=== PATIENT | male | born 1945 | race Caucasian/White ===

== ENCOUNTER 2016-02-11 10:12 | Outpatient (RCR) | payer MEDICARE ==
[2016-02-10 13:55] VITALS: BP 118/59
[~2016-02-11 10:12] MED LIST: ACETAMINOPHEN-H1 TA2 PO; AMARYL PO; CALCIUM1 CAP PO; CELEBREX 200MG200 MG PO; CYCLOBENZAPRINE10 M1 PO; FLOMAX 0.40.4 MG/CAP PO; JANUVIA100 MG PO; LASIX40 M1 PO; LOPRESSOR 550 MG/TAB PO; MAG-SO480 MG PO; MULTI VITAMINS1 TAB PO; PERCOCET 325 MG1 TA2 PO; PRAVASTATIN SOD10 MG PO; ZESTRIL40 M1 PO
== END 2016-05-11 | disposition home or self-care (01) ==
LOC: PT
DX: R53.1 Weakness (principal)

== ENCOUNTER 2016-08-25 13:57 | Emergency (ER) | payer MEDICARE ==
[~2016-08-25] VITALS: Ht 172.7 cm; Wt 105.7 kg
[2016-08-25] MEDS ORDERED: ASPIR LOW81 MG PO (14:43)
[2016-08-25] MEDS ORDERED: CYCLOBENZAPRINE10 M1 PO (14:53)
[2016-08-25] MEDS ORDERED: CITRACAL + D E1 EACH PO (14:53)
[2016-08-25] MEDS ORDERED: SLOW-MAG 106 MG1 ECT PO (14:55)
[2016-08-25] MEDS ORDERED: DOCUSATE SODIUM1 TA3 PO (14:56)
[2016-08-25] MEDS ORDERED: TRIDERM0.1% TP (14:58)
[2016-08-25 16:34] VITALS: BP 127/50
== END 2016-08-25 16:34 | disposition other institution (70) ==
LOC: ED 13:57
DX: N39.0 Urinary tract infection, site not specified (principal); B96.20 Unspecified Escherichia coli [E. coli] as the cause of diseases classified elsewhere
CPT/HCPCS: J2405; J7030

== ENCOUNTER 2016-08-25 16:23 | Inpatient (IN) | payer MEDICARE ==
[~2016-08-25] VITALS: Ht 172.7 cm; Wt 109.8 kg
[~2016-08-25 16:23] MED LIST changes: +ASPIR LOW81 MG PO; +CITRACAL + D E1 EACH PO; +DOCUSATE SODIUM1 TA3 PO; +SLOW-MAG 106 MG1 ECT PO; +TRIDERM0.1% TP
--- NOTE | 2016-08-25 16:51 | NUR ---
TRANSPORT PATIENT TO ROOM 208 VIA W/C. REMAINS PRESENT. THEY ARE AGREEABLE TO PLAN OF CARE. IV SITE INTACT TO LT FOREARM WITH NS INFUSING. PATIENT IS WEAK. REPORTS THAT HE NORMALLY HAS DIFFICULTY MOVING AROUND. HE DOES REQUIRE SOME ASSISTANCE RISING TO A SITTING POSITION ON THE BED. DURING TRANSFERS HE DOES HOLD ON TO NEARBY OBJECTS TO STEADY HIMSELF.
[2016-08-25 17:12] VITALS: BP 127/50
--- NOTE | 2016-08-25 17:56 | NUR ---
PATIENT SWEATING. POOL OF SWEAT ON PILLOW. SWEATPANTS REMOVED AND THEY ARE MOIST. ORAL TEMP 101.4. PATIENT POSITIONED FOR COMFORT. DENIES OTHER NEEDS AT THIS TIME.
[2016-08-25 18:41] VITALS: BP 131/44
--- NOTE | 2016-08-25 18:51 | NUR ---
REPORT PROVIDED TO AIRAM ALBERTO.
--- NOTE | 2016-08-25 18:55 | NUR ---
REPORT RECEIVED FROM JANIS Davenport RN.
[2016-08-25 22:53] VITALS: BP 108/61
--- NOTE | 2016-08-25 23:00 | NUR ---
Pt awake and a/o x 3. RECORDER HELPER SEISMOGRAPH reported pt requested warm blanket. Oral temp 98.7. Pt given warm blanket.
[2016-08-26] VITALS (7 sets, daily range): BP systolic 88–137; BP diastolic 34–75
--- NOTE | 2016-08-26 00:05 | NUR ---
Q hourly checks done, bed alarm on. Pt resting in bed on stomach. Respirations even. Pt snoring on and off. IV infusing at 125mls/hour.
--- NOTE | 2016-08-26 01:57 | NUR ---
At 0138 Pt's IV pump alarming. New bag of Noraml Saline hung. Continues to infuse at 125mls/hour. IV site, patent, no redness, no swelling and none tender to touch. Pt used urinal, voided 225mls of alison color urine. C/o of headache. Requested regular soda pop.
--- NOTE | 2016-08-26 01:59 | NUR ---
Oral temp 100.9. Pt given tylenol 1000mg PO. Given regular park cola with ice. Pt denied nausea.
--- NOTE | 2016-08-26 02:44 | NUR ---
Pt awake and a/o x 3. Repositioning self. Pt stated headache was gone. Pt Blankets off pt. Stated "I'm hot." "I can't decide if I'm hot or cold."
--- NOTE | 2016-08-26 06:13 | NUR ---
PATIENT CONTINUES TO REST QUIETLY IN BED. PATIENT DOES NOT APPEAR TO BE IN ANY OBVIOUS DISTRESS AT THIS TIME. PATIENT CHANGES HIS POSITION IN BED INDEPENDENTLY THROUGHOUT THE NIGHT. HOB ELEVATED TO A 75 DEGREE ANGLE, PER PATIENT REQUEST. BED RAILS UP X2. IV NS CONTINUES TO INFUSE AT 125 ML/HR. IV SITE LOOKS NORMAL. CALL LIGHT WITHIN REACH. BED ALARM ARMED AT ALL TIMES. PATIENT'S TEMPERATURE CONTINUES TO BE CLOSELY MONITORED. HOURLY ROUNDING CONTINUES.
--- NOTE | 2016-08-26 06:53 | NUR ---
REPORT GIVEN TO RALPH Bautista RN.
--- NOTE | 2016-08-26 11:00 | NUR ---
Pt vomits small amount of yellow clear emesis. Denies any pain. Just feels chilled.
--- NOTE | 2016-08-26 12:30 | NUR ---
Pt resting back in bed. Drank small amount of juice and broth. Sweating and hot. Fan provided. Pt resting with call light in reach
--- NOTE | 2016-08-26 18:10 | NUR ---
Edilberto Blank updated with pt condition, continued fevers and SPO2. Pt denies any SOB or any pain.
--- NOTE | 2016-08-26 20:30 | NUR ---
patient sitting up in chair upon nurses entering, just finished eating half a sandwich, half a bowl of soup and half a pudding, tolerated well, denies any nausea or upset stomach, "feel pretty good right now" patient able to stand up and pivot into the bed at this time with standby assist, tolerated well, SCD's applied, tucked in, bed alarm activated, finger stick blood sugar 235 at this time, will recheck in about an hour as he just finished eating, resting quietly, denies any needs/complaints at this time
--- NOTE | 2016-08-26 23:30 | NUR ---
2320 CODING DIRECTOR reported pt awake sitting up along side of bed. A/o x 3. C/o's of nausea and oral temp of 101.3. 2325 Pt given zofran 4mg SIVP. Given warm blanket. Pt c/o's of feeling cold and is shaking. Accu-chek done, blood sugar 123. 2330 Pt stated nausea was better. Given tylenol 1000mg PO. Pt swallowed without difficulty.
[2016-08-27 03:01] VITALS: BP 94/58
[2016-08-27 06:21] VITALS: BP 103/51
--- NOTE | 2016-08-27 09:38 | NUR ---
HOLDING MORNING MEDICATIONS AT THIS TIME DUE TO PENDING CT SCAN, PT HAS DRANK THE APPROPRIATE AGENT AND IS WAITING FOR SCAN AT THIS TIME
--- NOTE | 2016-08-27 09:57 | NUR ---
PT FOUND SITTING IN CHAIR THIS MORNING. PT REPORTED THAT HE WAS NAUSEATED LAST NIGHT, BUT NOT AT THIS TIME. PT REPORTED THAT HE HAD NO COMPLAINTS AND FELT LIKE HE WAS READY FOR DISCHARGE. REPORTING RN, KANA REPORTED FEVER AT 0030, LAST NIGHT. PT IS A-FEBRIL AT THIS TIME. PT DENIED PAIN. MEDICATIONS WERE HELD UNTIL AFTER MORNING CT, DUE TO POSSIBILITY OF NAUSEA. PT BREAKFAST HELD UNTIL AFTER CT. PT DENIED ANY COMPLAINTS.
--- NOTE | 2016-08-27 10:16 | NUR ---
pt returns from CT at this time, requesting to wait a few minutes for his breakfast and pills, he states he still is trying to recover from that "bitter" drink he had to get down prior to the scan, will give AM meds as soon as pt is ready and feeling better
[2016-08-27 10:27] VITALS: BP 155/82
--- NOTE | 2016-08-27 12:24 | NUR ---
PATIENT SITTING IN CHAIR EATING LUNCH. HE REPORTS IT IS SETTLING WELL. VISITOR PRESENT IN ROOM.
--- NOTE | 2016-08-27 14:18 | NUR ---
Pt anticipates discharge to home either on this date or tomorrow, he states he do not expect he will have any need of HH services upon discharge. Currently provider is awaiting CT results prior to making decision.
[2016-08-27 15:44] VITALS: BP 188/90
--- NOTE | 2016-08-27 15:49 | NUR ---
Pt with chilling, bouts of nausea, mildly elevated temperature. Reported to Syeda Clark PA-C. Syeda requested that I contact the patients spouse and give her an update of the events and that he would not be discharged today. Called Elaine and updated her. She voiced her understanding and stated she would be up later to visit.
--- NOTE | 2016-08-27 16:32 | NUR ---
Pt found wandering down the mota without assistance. When patient was asked where he was going, he asked if the dogs were here. Spouse had told Syeda Clark PA-C that they were raising a litter of puppies at home. Walked pt back to his room and settled him in bed and activated his bed alarm. Noted pt was tachypneic. O2 sats checked and resulted 91% on room air. Applied 2L O2 for comfort. HR noted to be tachycardic at 105. REMY Duenas reported findings to Syeda Clark PA-C.
[2016-08-27 18:39] VITALS: BP 136/66
--- NOTE | 2016-08-27 20:19 | NUR ---
PT A/OX2, UP TO BATHROOM, HAS HAD 2 EPISODES OF DIARRHEA, HAS NO C/O PAIN OR DISCOMFORT, EATING BANNANA AT THIS TIME
--- NOTE | 2016-08-27 22:39 | NUR ---
IV infiltrated while NS running. IV D/C'd. Cath intact. New INT #20 started in RFA x1 attempt. Tolerated well. Fluids resumed at this time.
[2016-08-27 22:55] VITALS: BP 132/76
[2016-08-28 02:51] VITALS: BP 137/78
[2016-08-28 06:18] VITALS: BP 159/80
--- NOTE | 2016-08-28 08:07 | NUR ---
Pt sitting up in recliner. Reports that he "have not slept since I've been here." Fluids infusing per order. Pt states that he is feeling better. Afebrile x 24 hours. Continues to have loose stools. Explain that this is most likely r/t abx infusion.
[2016-08-28 10:39] VITALS: BP 148/78
[2016-08-28 15:22] VITALS: BP 155/80
[2016-08-28 17:49] VITALS: BP 164/82
[2016-08-28] MEDS ORDERED: CEPHALEXIN500 M1 PO (18:21)
--- NOTE | 2016-08-28 18:57 | NUR ---
Pt reports that he is feeling better than upon admit. Informed him that he does have a low grade temp at this time, pt wants to wait to get home to take tylenol. Is given pt own clothing and dresses self. INT to RFA removed complete/intact. Pt instructed to start PO Abx tomorrow and resume regular home meds as prescribed. Pt reports that his will be here to pick him up.
--- NOTE | 2016-08-28 19:27 | NUR ---
Pt ambulates from facility for d/c at this time.
== END 2016-08-28 19:27 | disposition home or self-care (01) | DRG 690 ==
LOC: MED/SURG 16:23
PROVIDERS: ADMIT Physician Assistant
DX: N39.0 Urinary tract infection, site not specified (principal); E87.70 Fluid overload, unspecified; E11.9 Type 2 diabetes mellitus without complications; I10 Essential (primary) hypertension; Z96.653 Presence of artificial knee joint, bilateral; Z87.891 Personal history of nicotine dependence
CPT/HCPCS: J0696; J1650; J1815; J1885; J1940; J1956; J2405; J7030; Q9967

== ENCOUNTER → 2018-08-07 | Outpatient (CLI) | payer MEDICARE ==
[~2018-08-07] MED LIST changes: +CEPHALEXIN500 M1 PO
== END ==
LOC: VAS 16:33 → RAD 16:45
DX: R01.1 Cardiac murmur, unspecified (principal)

== ENCOUNTER 2018-10-19 11:04 | Emergency (ER) | payer MEDICARE ==
[~2018-10-19] VITALS: Wt 105.4 kg
[2018-10-19] MEDS ORDERED: PRAVASTATIN SOD40 MG PO (11:27)
[2018-10-19] MEDS ORDERED: VICTOZA 3-0.6 MG/0.1 SQ (11:27)
[2018-10-19] MEDS ORDERED: CELECOXIB200 M1 PO (11:28)
[2018-10-19] MEDS ORDERED: LOPRESSOR 225 MG/TAB PO (11:28)
[2018-10-19] MEDS ORDERED: PRAVACHOL 40MG40 MG PO (11:28)
[2018-10-19 11:35] LABS: EOS # 0.2 (0.04-0.40); EOS % 3.2 % (0.0-4.0); HEMOGLOBIN 12.9 g/dL (13.5-18.0); LYMPH# 1.5 (1.50-4.00); MEAN CELL VOLUME 85 fl (78-100); MEAN CORPUSCULAR HEMOGLOBIN 28 pg (27-31); MEAN CORPUSCULAR HGB CONC 33 g/dL (33-37); MEAN PLATELET VOLUME 11.2 fl (7.4-10.4); MONO # 0.5 (0.20-0.80); NEU # 5.2 (1.40-6.50); PLATELET COUNT 166 K/mm3 (130-400); RED BLOOD COUNT 4.61 M/mm3 (4.20-5.60); RED CELL DISTRIBUTION WIDTH 13.4 % (11.5-14.5); WHITE BLOOD COUNT 7.5 K/mm3 (4.8-10.8)
[2018-10-19 11:42] LABS: ALBUMIN 3.8 g/dL (3.4-4.8)
[2018-10-19 11:43] LABS: POTASSIUM 4.2 mmol/L (3.5-5.1)
[2018-10-19 11:44] LABS: CALCIUM 9.1 mg/dL (8.3-10.5)
[2018-10-19 11:47] LABS: TOTAL BILIRUBIN 0.5 mg/dL (0.2-1.2)
[2018-10-19 12:00] LABS: PROTHROMBIN TIME 9.9 SECONDS (9.0-12.0)
[2018-10-19 12:24] LABS: D-DIMER 2.46 mg/L FEU (0.15-0.50)
[2018-10-19 16:28] VITALS: BP 117/71
== END 2018-10-19 16:18 | disposition short-term general hospital (02) ==
LOC: ED 11:04
PROVIDERS: Nurse Practitioner Primary Care
DX: I20.9 Angina pectoris, unspecified (principal); E11.9 Type 2 diabetes mellitus without complications; I10 Essential (primary) hypertension; F17.210 Nicotine dependence, cigarettes, uncomplicated; Z90.49 Acquired absence of other specified parts of digestive tract; Z90.89 Acquired absence of other organs; Z79.82 Long term (current) use of aspirin
CPT/HCPCS: Q9967

== ENCOUNTER 2018-10-30 06:26 | Emergency (ER) | payer MEDICARE ==
[~2018-10-30] VITALS: Ht 172.7 cm; Wt 100.5 kg
[~2018-10-30 06:26] MED LIST changes: +CELECOXIB200 M1 PO; +LOPRESSOR 225 MG/TAB PO; +PRAVACHOL 40MG40 MG PO; +PRAVASTATIN SOD40 MG PO; +VICTOZA 3-0.6 MG/0.1 SQ
[2018-10-30 07:11] LABS: EOS # 0.2 (0.04-0.40); EOS % 1.7 % (0.0-4.0); HEMATOCRIT 39.6 % (42.0-52.0); HEMOGLOBIN 13.1 g/dL (13.5-18.0); LYMPH# 1.4 (1.50-4.00); MEAN CELL VOLUME 84 fl (78-100); MEAN CORPUSCULAR HEMOGLOBIN 28 pg (27-31); MEAN CORPUSCULAR HGB CONC 33 g/dL (33-37); MEAN PLATELET VOLUME 10.5 fl (7.4-10.4); MONO # 0.8 (0.20-0.80); NEU # 8.4 (1.40-6.50); PLATELET COUNT 197 K/mm3 (130-400); RED CELL DISTRIBUTION WIDTH 13.2 % (11.5-14.5); WHITE BLOOD COUNT 10.7 K/mm3 (4.8-10.8)
[2018-10-30 07:21] LABS: URINE APPEARANCE CLEAR; URINE BILIRUBIN NEGATIVE (NEGATIVE); URINE BLOOD NEGATIVE (NEGATIVE); URINE COLOR YELLOW; URINE GLUCOSE NEGATIVE (NEGATIVE); URINE KETONE NEGATIVE (NEGATIVE); URINE LEUKOCYTE ESTERASE NEGATIVE (NEGATIVE); URINE MUCUS PRESENT (NOT PRESENT); URINE NITRATE NEGATIVE (NEGATIVE); URINE PROTEIN(semi-quant) 1+ mg/dL (NEGATIVE); URINE UROBILINOGEN NORMAL (NORMAL)
[2018-10-30 07:24] LABS: POTASSIUM 4.3 mmol/L (3.5-5.1)
[2018-10-30 07:25] LABS: CALCIUM 9.5 mg/dL (8.3-10.5)
[2018-10-30 07:26] LABS: TOTAL PROTEIN 7.3 g/dL (6.2-8.1)
[2018-10-30 07:28] LABS: TOTAL BILIRUBIN 0.5 mg/dL (0.2-1.2)
[2018-10-30] MEDS ORDERED: NORCO 325 MG-51 TA1 PO (09:04)
[2018-10-30] MEDS ORDERED: PHENERGAN 25 TA25 MG PO (09:04)
[2018-10-30 09:57] VITALS: BP 135/77
== END 2018-10-30 10:15 | disposition home or self-care (01) ==
LOC: ED 06:26
PROVIDERS: Family Medicine
DX: N20.0 Calculus of kidney (principal); E11.51 Type 2 diabetes mellitus with diabetic peripheral angiopathy without gangrene; I10 Essential (primary) hypertension; Z79.82 Long term (current) use of aspirin; Z79.84 Long term (current) use of oral hypoglycemic drugs; Z87.442 Personal history of urinary calculi; Z90.49 Acquired absence of other specified parts of digestive tract
CPT/HCPCS: J1885; J2270; J2550; J7030

== ENCOUNTER → 2019-05-09 | Outpatient (CLI) | payer MEDICARE ==
[~2019-05-09] MED LIST changes: +NORCO 325 MG-51 TA1 PO; +PHENERGAN 25 TA25 MG PO
== END ==
LOC: RAD 08:57
DX: Z13.6 Encounter for screening for cardiovascular disorders (principal); Z86.79 Personal history of other diseases of the circulatory system; Z87.891 Personal history of nicotine dependence

== ENCOUNTER 2020-03-07 09:30 | Outpatient (RCR) | payer MEDICARE ==
[2019-11-13 21:35] VITALS: BP 159/83
[~2020-03-07 09:30] MED LIST changes: +BACLOFEN5 MG PO; +MAGNESIUM ELEME30 MG
== END 2020-04-21 | disposition home or self-care (01) ==
LOC: PT
DX: M79.605 Pain in left leg (principal); M25.562 Pain in left knee; G89.29 Other chronic pain

== ENCOUNTER → 2020-06-12 | Outpatient (CLI) | payer MEDICARE ==
[2019-11-13 21:35] VITALS: BP 159/83
[~2020-06-12] MED LIST changes: +ACETAMINOPHEN325 M1 PO; +BIOTIN1000 MC1 PO; +CALCIUM 600 MG-1 TAB PO; +CEFDINIR300 MG PO; +ESCITALOPRAM5 MG PO; +GAVILAX17 GM PO; +KENALOG 60 ML60 M1 TP; +MAG DELAY64 MG PO; +VITAMIN D325 MC7 PO
== END ==
LOC: RAD 08:54
DX: R91.8 Other nonspecific abnormal finding of lung field (principal); R59.1 Generalized enlarged lymph nodes; Z90.49 Acquired absence of other specified parts of digestive tract
CPT/HCPCS: Q9967

== ENCOUNTER 2020-09-19 13:39 | Emergency (ER) | payer MEDICARE ==
[~2020-09-19 13:39] MED LIST changes: -ACETAMINOPHEN325 M1 PO; -BIOTIN1000 MC1 PO; -CALCIUM 600 MG-1 TAB PO; -CEFDINIR300 MG PO; -ESCITALOPRAM5 MG PO; -GAVILAX17 GM PO; -KENALOG 60 ML60 M1 TP; -MAG DELAY64 MG PO; -VITAMIN D325 MC7 PO
[2020-09-19] MEDS ORDERED: VICTOZA 3-0.6 MG/0.1 SQ (14:15)
[2020-09-19] MEDS ORDERED: ACETAMINOPHEN325 M1 PO (14:28)
[2020-09-19] MEDS ORDERED: VITAMIN D325 MC7 PO (14:29)
[2020-09-19] MEDS ORDERED: CALCIUM 600 MG-1 TAB PO (14:29)
[2020-09-19] MEDS ORDERED: BIOTIN1000 MC1 PO (14:29)
[2020-09-19] MEDS ORDERED: ACETAMINOPHEN-H1 TA2 PO (14:30)
[2020-09-19] MEDS ORDERED: MAG DELAY64 MG PO (14:31)
[2020-09-19] MEDS ORDERED: GAVILAX17 GM PO (14:31)
[2020-09-19] MEDS ORDERED: KENALOG 60 ML60 M1 TP (14:32)
[2020-09-19 14:33] LABS: BASO # 0.02 (0.02-0.10); EOS # 0.27 (0.04-0.40); EOS % 3.9 % (0.0-4.0); HEMATOCRIT 39.5 % (42.0-52.0); HEMOGLOBIN 13.2 g/dL (13.5-18.0); LYMPH# 1.46 (1.50-4.00); MEAN CELL VOLUME 84 fl (78-100); MEAN CORPUSCULAR HEMOGLOBIN 28 pg (27-31); MEAN CORPUSCULAR HGB CONC 33 g/dL (33-37); MEAN PLATELET VOLUME 11.2 fl (7.4-10.4); MONO # 0.45 (0.20-0.80); NEU # 4.68 (1.40-6.50); PLATELET COUNT 173 K/mm3 (130-400); RED BLOOD COUNT 4.69 M/mm3 (4.20-5.60); RED CELL DISTRIBUTION WIDTH 12.7 % (11.5-14.5); WHITE BLOOD COUNT 6.9 K/mm3 (4.8-10.8)
[2020-09-19 14:34] LABS: POTASSIUM 4.1 mmol/L (3.5-5.1); SODIUM 141 mmol/L (136-145)
[2020-09-19 14:35] LABS: CALCIUM 9.2 mg/dL (8.3-10.5)
[2020-09-19 14:36] LABS: GLUCOSE 238 mg/dL (75-110); TOTAL PROTEIN 7.1 g/dL (6.2-8.1)
[2020-09-19 14:37] LABS: CARBON DIOXIDE 24 mmol/L (23-31)
[2020-09-19 14:38] LABS: TOTAL BILIRUBIN 0.4 mg/dL (0.2-1.2)
[2020-09-19 14:41] LABS: AST-SGOT 13 U/L (5-34)
[2020-09-19 14:43] LABS: ALT/SGPT 17 U/L (0-55)
[2020-09-19 14:50] LABS: TROPONIN-I < 0.03 ng/mL (<0.030)
[2020-09-19 14:58] LABS: PARTIAL THROMBOPLASTIN TIME 22.9 SECONDS (21.0-32.0); PROTHROMBIN TIME 9.8 SECONDS (9.0-12.0)
[2020-09-19 15:24] VITALS: BP 131/86
== END 2020-09-19 15:24 | disposition home or self-care (01) ==
LOC: ED 13:39
PROVIDERS: Nurse Practitioner
DX: G11.4 Hereditary spastic paraplegia (principal); E11.9 Type 2 diabetes mellitus without complications; E78.5 Hyperlipidemia, unspecified; Z87.891 Personal history of nicotine dependence; Z79.899 Other long term (current) drug therapy; Z79.84 Long term (current) use of oral hypoglycemic drugs

== ENCOUNTER 2020-10-08 18:58 | Emergency (ER) | payer MEDICARE ==
[~2020-10-08 18:58] MED LIST changes: +ACETAMINOPHEN325 M1 PO; +BIOTIN1000 MC1 PO; +CALCIUM 600 MG-1 TAB PO; +GAVILAX17 GM PO; +KENALOG 60 ML60 M1 TP; +MAG DELAY64 MG PO; +VITAMIN D325 MC7 PO
[2020-10-08 20:08] LABS: POTASSIUM 4.1 mmol/L (3.5-5.1); SODIUM 138 mmol/L (136-145)
[2020-10-08 20:09] LABS: CALCIUM 9.2 mg/dL (8.3-10.5)
[2020-10-08 20:10] LABS: GLUCOSE 163 mg/dL (75-110); TOTAL PROTEIN 7.2 g/dL (6.2-8.1)
[2020-10-08 20:11] LABS: CARBON DIOXIDE 22 mmol/L (23-31)
[2020-10-08 20:12] LABS: TOTAL BILIRUBIN 0.9 mg/dL (0.2-1.2)
[2020-10-08 20:15] LABS: AST-SGOT 12 U/L (5-34)
[2020-10-08 20:17] LABS: ALT/SGPT 12 U/L (0-55)
[2020-10-08 20:18] LABS: BASO # 0.03 (0.02-0.10); EOS # 0.02 (0.04-0.40); EOS % 0.2 % (0.0-4.0); HEMATOCRIT 38.4 % (42.0-52.0); HEMOGLOBIN 12.9 g/dL (13.5-18.0); LYMPH# 1.13 (1.50-4.00); MEAN CELL VOLUME 84 fl (78-100); MEAN CORPUSCULAR HEMOGLOBIN 28 pg (27-31); MEAN CORPUSCULAR HGB CONC 34 g/dL (33-37); MEAN PLATELET VOLUME 11.1 fl (7.4-10.4); MONO # 1.13 (0.20-0.80); NEU # 6.88 (1.40-6.50); PLATELET COUNT 154 K/mm3 (130-400); RED BLOOD COUNT 4.56 M/mm3 (4.20-5.60); RED CELL DISTRIBUTION WIDTH 13.1 % (11.5-14.5); WHITE BLOOD COUNT 9.2 K/mm3 (4.8-10.8)
[2020-10-08 20:25] LABS: TROPONIN-I < 0.03 ng/mL (<0.030)
[2020-10-08 20:42] LABS: URINE APPEARANCE CLOUDY; URINE BILIRUBIN 1+ (NEGATIVE); URINE BLOOD TRACE (NEGATIVE); URINE COLOR YELLOW; URINE GLUCOSE NEGATIVE (NEGATIVE); URINE KETONE 2+ (NEGATIVE); URINE LEUKOCYTE ESTERASE NEGATIVE (NEGATIVE); URINE MUCUS PRESENT (NOT PRESENT); URINE NITRATE NEGATIVE (NEGATIVE); URINE PROTEIN(semi-quant) TRACE mg/dL (NEGATIVE); URINE UROBILINOGEN NORMAL (NORMAL); URINE WBC 0-1 /hpf (0-3)
[2020-10-08 20:50] LABS: D-DIMER 2.06 mg/L FEU (0.15-0.50)
[2020-10-08] MEDS ORDERED: ESCITALOPRAM5 MG PO (21:31)
[2020-10-08] MEDS ORDERED: CEFDINIR300 MG PO (21:57)
[2020-10-08 22:20] VITALS: BP 141/73
== END 2020-10-08 22:20 | disposition home or self-care (01) ==
LOC: ED 18:58
PROVIDERS: Physician Assistant
DX: J40 Bronchitis, not specified as acute or chronic (principal); J32.9 Chronic sinusitis, unspecified; E11.9 Type 2 diabetes mellitus without complications; I10 Essential (primary) hypertension; E78.5 Hyperlipidemia, unspecified; Z20.822 Contact with and (suspected) exposure to COVID-19; Z79.899 Other long term (current) drug therapy; Z79.84 Long term (current) use of oral hypoglycemic drugs
CPT/HCPCS: Q9967

== ENCOUNTER 2020-10-13 08:01 | Outpatient (RCR) | payer MEDICARE ==
[~2020-10-13 08:01] MED LIST changes: +CEFDINIR300 MG PO; +ESCITALOPRAM5 MG PO
== END 2021-01-11 | disposition home or self-care (01) ==
LOC: PT
DX: R26.89 Other abnormalities of gait and mobility (principal); R47.01 Aphasia

== ENCOUNTER → 2020-12-26 | Outpatient (CLI) | payer MEDICARE | LOC: RAD 08:51 | DX: R59.1 Generalized enlarged lymph nodes (principal); R91.1 Solitary pulmonary nodule; Z90.49 Acquired absence of other specified parts of digestive tract | CPT/HCPCS: Q9967 ==

== ENCOUNTER 2021-07-06 14:56 | Outpatient (RCR) | payer MEDICARE | END 2021-07-16 | disposition home or self-care (01) | LOC: PT | DX: G11.4 Hereditary spastic paraplegia (principal) ==

== ENCOUNTER 2021-07-21 09:09 | Outpatient (RCR) | payer MEDICARE | END 2021-08-15 | disposition home or self-care (01) | LOC: PT | DX: G11.4 Hereditary spastic paraplegia (principal) ==

== ENCOUNTER 2021-08-17 10:15 | Outpatient (RCR) | payer MEDICARE | END 2021-09-15 | disposition home or self-care (01) | LOC: PT | DX: G11.4 Hereditary spastic paraplegia (principal) ==

== ENCOUNTER 2021-09-17 08:25 | Outpatient (RCR) | payer MEDICARE | END 2021-10-15 | disposition still patient (30) | LOC: PT | DX: G11.4 Hereditary spastic paraplegia (principal) ==

== ENCOUNTER 2021-11-06 14:00 | Outpatient (RCR) | payer MEDICARE | END 2021-11-15 | disposition home or self-care (01) | LOC: PT | DX: G11.4 Hereditary spastic paraplegia (principal) ==

== ENCOUNTER 2021-11-20 08:22 | Emergency (ER) | payer MEDICARE ==
[~2021-11-20] VITALS: Ht 172.7 cm; Wt 113.6 kg
[2021-11-20 08:56] LABS: BASO # 0.04 K/mm3 (0.02-0.10); EOS # 0.06 K/mm3 (0.04-0.40); EOS % 0.6 % (0.0-4.0); HEMATOCRIT 40.5 % (42.0-52.0); HEMOGLOBIN 13.2 g/dL (13.5-18.0); LYMPH# 1.81 K/mm3 (1.50-4.00); MEAN CELL VOLUME 86 fl (78-100); MEAN CORPUSCULAR HEMOGLOBIN 28 pg (27-31); MEAN CORPUSCULAR HGB CONC 33 g/dL (33-37); MEAN PLATELET VOLUME 10.7 fl (7.4-10.4); MONO # 0.81 K/mm3 (0.20-0.80); NEU # 7.38 K/mm3 (1.40-6.50); PLATELET COUNT 181 K/mm3 (130-400); RED BLOOD COUNT 4.73 M/mm3 (4.20-5.60); RED CELL DISTRIBUTION WIDTH 13.4 % (11.5-14.5); WHITE BLOOD COUNT 10.1 K/mm3 (4.8-10.8)
[2021-11-20 09:00] VITALS: BP 166/87
[2021-11-20 09:03] LABS: ALBUMIN 4.2 g/dL (3.4-4.8); POTASSIUM 4.5 mmol/L (3.5-5.1)
[2021-11-20 09:05] LABS: CALCIUM 9.8 mg/dL (8.3-10.5)
[2021-11-20 09:06] LABS: TOTAL PROTEIN 7.6 g/dL (6.2-8.1)
[2021-11-20 09:08] LABS: TOTAL BILIRUBIN 0.6 mg/dL (0.2-1.2)
[2021-11-20 11:18] LABS: URINE APPEARANCE HAZY; URINE BILIRUBIN NEGATIVE (NEGATIVE); URINE BLOOD 250 ery/uL (NEGATIVE); URINE COLOR DARK YELLOW; URINE GLUCOSE 50 mg/dL (NEGATIVE); URINE KETONE NEGATIVE (NEGATIVE); URINE LEUKOCYTE ESTERASE NEGATIVE (NEGATIVE); URINE NITRATE NEGATIVE (NEGATIVE); URINE PROTEIN(semi-quant) TRACE (NEGATIVE); URINE UROBILINOGEN NORMAL (NORMAL)
[2021-11-20] MEDS ORDERED: ZOFRAN ODT4 MG PO (11:58)
[2021-11-20] MEDS ORDERED: FLOMAX0.4 MG PO (11:58)
[2021-11-20] MEDS ORDERED: NORCO 325 MG-51 TA1 PO ×2 (11:59→12:14)
== END 2021-11-20 13:35 | disposition home or self-care (01) ==
LOC: ED 08:22
PROVIDERS: Nurse Practitioner
DX: N13.2 Hydronephrosis with renal and ureteral calculous obstruction (principal)
CPT/HCPCS: J1885; J2405; J2550; J3010; J7030; Q9967

== ENCOUNTER 2021-12-19 17:04 | Emergency (ER) | payer MEDICARE ==
[~2021-12-19] VITALS: Ht 172.7 cm; Wt 106.3 kg
[~2021-12-19 17:04] MED LIST changes: +FLOMAX0.4 MG PO; +ZOFRAN ODT4 MG PO
[2021-12-19 18:59] VITALS: BP 144/76
== END 2021-12-19 19:00 | disposition home or self-care (01) ==
LOC: ED 17:04
DX: U07.1 COVID-19 (principal)

== ENCOUNTER → 2022-01-01 | Outpatient (CLI) | payer MEDICARE | LOC: RAD 12-30 09:00 | DX: R59.1 Generalized enlarged lymph nodes (principal); K42.9 Umbilical hernia without obstruction or gangrene; N20.0 Calculus of kidney | CPT/HCPCS: Q9967 ==

== ENCOUNTER → 2022-02-12 | Outpatient (CLI) | payer MEDICARE | LOC: RAD 14:32 | DX: M47.816 Spondylosis without myelopathy or radiculopathy, lumbar region (principal) ==

== ENCOUNTER 2022-07-01 08:00 | Outpatient (RCR) | payer MEDICARE | END 2022-07-16 | disposition home or self-care (01) | LOC: PT | DX: M54.16 Radiculopathy, lumbar region (principal) ==

== ENCOUNTER → 2023-11-28 | Day surgery (SDC) | payer MEDICARE ==
[~2023-11-28] MED LIST changes: +AZELASTINE137 MCG/Ac NS; +LOSARTAN POTASS50 M1 PO; +Lidocaine PF 2% (20 MG/ML) 5 ML VIAL ONE; +REMERON15 MG PO; +TIZANIDINE2 MG PO; +TOLTERODINE TART4 MG PO; +TRULICITY0.75 MG/0. SC; +XARELTO20 MG PO
== END | disposition home or self-care (01) ==
LOC: MSO 11:25
DX: R13.10 Dysphagia, unspecified (principal); G47.33 Obstructive sleep apnea (adult) (pediatric)
CPT/HCPCS: 00731; J2704; J7120

== ENCOUNTER 2023-12-18 08:44 | Emergency (ER) | payer MEDICARE ==
[~2023-12-18] VITALS: Ht 177.8 cm; Wt 102.9 kg
[~2023-12-18 08:44] MED LIST changes: -AZELASTINE137 MCG/Ac NS; -LOSARTAN POTASS50 M1 PO; -Lidocaine PF 2% (20 MG/ML) 5 ML VIAL ONE; -REMERON15 MG PO; -TIZANIDINE2 MG PO; -TOLTERODINE TART4 MG PO; -TRULICITY0.75 MG/0. SC; -XARELTO20 MG PO
[2023-12-18 09:14] LABS: BASO # 0.01 K/mm3 (0.02-0.10); EOS # 0.06 K/mm3 (0.04-0.40); EOS % 0.8 % (0.0-4.0); HEMATOCRIT 36.1 % (42.0-52.0); HEMOGLOBIN 11.7 g/dL (13.5-18.0); LYMPH# 0.89 K/mm3 (1.50-4.00); MEAN CELL VOLUME 85 fl (78-100); MEAN CORPUSCULAR HEMOGLOBIN 28 pg (27-31); MEAN CORPUSCULAR HGB CONC 32 g/dL (33-37); MEAN PLATELET VOLUME 9.5 fl (7.4-10.4); MONO # 0.75 K/mm3 (0.20-0.80); NEU # 5.87 K/mm3 (1.40-6.50); PLATELET COUNT 162 K/mm3 (130-400); RED BLOOD COUNT 4.24 M/mm3 (4.20-5.60); RED CELL DISTRIBUTION WIDTH 14.1 % (11.5-14.5); WHITE BLOOD COUNT 7.6 K/mm3 (4.8-10.8)
[2023-12-18 09:23] LABS: ALBUMIN 3.9 g/dL (3.4-4.8)
[2023-12-18] MEDS ORDERED: TIZANIDINE2 MG PO (09:24)
[2023-12-18 09:25] LABS: CALCIUM 9.8 mg/dL (8.3-10.5)
[2023-12-18] MEDS ORDERED: AZELASTINE137 MCG/Ac NS (09:25)
[2023-12-18] MEDS ORDERED: LOSARTAN POTASS50 M1 PO (09:25)
[2023-12-18] MEDS ORDERED: TOLTERODINE TART4 MG PO (09:25)
[2023-12-18 09:26] LABS: TOTAL PROTEIN 6.7 g/dL (6.2-8.1)
[2023-12-18] MEDS ORDERED: TRULICITY0.75 MG/0. SC (09:26)
[2023-12-18] MEDS ORDERED: XARELTO20 MG PO (09:26)
[2023-12-18] MEDS ORDERED: REMERON15 MG PO (09:26)
[2023-12-18 09:28] LABS: TOTAL BILIRUBIN 0.6 mg/dL (0.2-1.2)
[2023-12-18] MEDS ORDERED: Acetaminophen 500 MG TAB PO ONE (10:00)
[2023-12-18 10:26] VITALS: BP 128/73
== END 2023-12-18 10:40 | disposition home or self-care (01) ==
LOC: ED 08:44
PROVIDERS: Family Medicine
DX: M25.572 Pain in left ankle and joints of left foot (principal); R53.1 Weakness